=== PATIENT | male | born 1945 | race Caucasian/White ===

== ENCOUNTER 2017-03-29 15:40 | Emergency (ER) | payer MEDICARE, BC ==
[2017-03-29 16:09] VITALS: BP 190/87
[2017-03-29] MEDS ORDERED: Sodium Chloride 0.9% 10 ML Syringe FLUSH PRN (16:42)
[2017-03-29] MEDS ORDERED: HYDROmorphone 1 MG/ML Syringe IVPUSH ONE (16:42)
[2017-03-29] MEDS ORDERED: Oxybutynin 5 MG Tab PO ONE (16:45)
[2017-03-29] MEDS ORDERED: Ondansetron 4 MG/2 ML SDV IVPUSH ONE (16:47)
--- NOTE | 2017-03-29 17:04 | EDM.PDOC ---
ED HPI GENERAL MEDICAL PROBLEM - General Chief Complaint: General Stated Complaint: PAIN CONTROL Time Seen by Provider: 03/29/17 16:29 Source of Information: Reports: Patient History Limitations: Reports: No Limitations - History of Present Illness INITIAL COMMENTS - FREE TEXT/NARRATIVE: Patient is a 71-year-old male presents ED complaining of pelvic/suprapubic abdominal pain for the past 48 hours. States he has a history of prostate cancer for almost 4 years. 3 years ago had seed implantation to his prostate which on follow-up visits indicated his PSA was increasing. He was placed on Lupron to decrease any testosterone within his body. Dr. Wesley Urologists and Dr. King Oncologist discontinued the Lupron and placed the patient on Zytega... He's been on this medication for 6 months with no changes to his PSA. This was recently discontinued and was placed on another medication of unknown name. 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 Of note CT scans obtained in January did reveal lymph nodes had doubled in size around the aorta and inguinal region. States as of one week ago he went off this new medication because he has been experiencing muscle cramping and low energy. States this past Saturday went back on the new medication per pharmacy recommendations and states his stomach feels tight and has had incontinence to urine. He's had this incontinence of urine in the past that relieved on its own. Unclear if this stress incontinence or overflow. Denies any fever/chills, nausea/vomiting, numbness or tingling, saddle anesthesia, incontinence of stool, or any additional complaints. He thought he was bloated/constipated and took laxatives for the past 2 days. He's had multiple loose stools since starting. Today was evaluated at the [facility] and CT the abdomen, UA, and blood work were obtained. Bilateral Lower Abdomen Pain Score (Numeric/FACES): 8 - Related Data Allergies Allergy/AdvReac Type Severity Reaction Status Date / Time No Known Allergies Allergy Verified 03/29/17 16:09 Home Meds: Home Meds Allopurinol [Zyloprim] 100 mg PO DAILY 10/18/14 [History] amLODIPine [Norvasc] 5 mg PO DAILY 10/18/14 [History] Acetaminophen/HYDROcodone [Blue 325-5 MG] 1 tab PO Q6H PRN #20 tablet 03/29/17 [Rx] Hydrochlorothiazide 25 mg PO DAILY 03/29/17 [History] Losartan Potassium 50 mg PO DAILY 03/29/17 [History] atorvaSTATin [Lipitor] 10 mg PO DAILY 03/29/17 [History] predniSONE [Prednisone] 5 mg PO BID 03/29/17 [History] Past Medical History Cardiovascular History: Reports: High Cholesterol, Hypertension Respiratory History: Reports: Other (See Below) Other Respiratory History: sarcdolsysis Gastrointestinal History: Reports: GERD Genitourinary History: Reports: Other (See Below) Other Genitourinary History: prostate cancer Psychiatric History: Reports: Panic Attack Oncologic (Cancer) History: Reports: Prostate, Other (See Below) Other Oncologic History: prostate seeds implanted 2013 - Past Surgical History Respiratory Surgical History: Reports: Lung Biopsies GI Surgical History: Reports: Cholecystectomy Male Surgical History: Reports: Prostate Biopsy Musculoskeletal Surgical History: Reports: Other (See Below) Other Musculoskeletal Surgeries/Procedures:: ACL repair Social & Family History - Tobacco Use Smoking Status *Q: Never Smoker Second Hand Smoke Exposure: Yes - Caffeine Use Caffeine Use: Reports: Coffee - Alcohol Use Days Per Week of Alcohol Use: 0 - Recreational Drug Use Recreational Drug Use: No ED ROS GENERAL - Review of Systems Review Of Systems: ROS reveals no pertinent complaints other than HPI. Constitutional: Reports: Malaise, Fatigue. Denies: Fever, Chills, Weakness, Decreased Appetite HEENT: Reports: No Symptoms Respiratory: Reports: No Symptoms Cardiovascular: Reports: No Symptoms GI/Abdominal: Reports: Abdominal Pain (Suprapubic), Constipation, Diarrhea, Decreased Appetite, Distension. Denies: Black Stool, Bloody Stool, Flatus, Hematemesis, Melena, Nausea, Vomiting : Reports: Dysuria, Frequency, Incontinence, Pain, Urgency, Urinary Retention. Denies: Discharge, Hematuria Musculoskeletal: Reports: Back Pain (Low back bilaterally) Neurological: Denies: Numbness, Pre-Existing Deficit, Tingling, Difficulty Walking, Weakness ED EXAM, GENERAL - Physical Exam Exam: See Below Exam Limited By: No Limitations General Appearance: Alert, WD/WN, Mild Distress Ears: Hearing Grossly Normal Nose: Normal Inspection Throat/Mouth: Normal Voice, No Airway Compromise Neck: Normal Inspection, Supple Respiratory/Chest: No Respiratory Distress, Lungs Clear, Normal Breath Sounds, No Accessory Muscle Use, Chest Non-Tender Cardiovascular: Normal Peripheral Pulses, Regular Rate, Rhythm, No Murmur Peripheral Pulses: 2+: Radial (L) GI/Abdominal: Distended (Mildly distended), Tender (suprapubic region), Abnormal Bowel Sounds (Hyperactive) Extremities: Normal Range of Motion, Non-Tender, Normal Capillary Refill, Pedal Edema (1+ lower extremities) Course - Vital Signs Last Recorded V/S: Last Vital Signs Temp 97.1 F 03/29/17 16:05 Pulse 40 L 03/29/17 16:05 Resp 18 03/29/17 16:05 BP 190/87 H 03/29/17 16:05 Pulse Ox 98 03/29/17 16:05 - Orders/Labs/Meds Labs: Laboratory Tests 03/29/17 Range/Units 17:45 Magnesium 1.8 (1.8-2.4) mg/dl Troponin I < 0.017 (0.00-0.056) ng/mL Meds: Medications Discontinued Medications Generic Name Dose Route Start Last Admin Trade Name Freq PRN Reason Stop Dose Admin Hydromorphone HCl 1 mg 03/29/17 16:42 03/29/17 17:02 Dilaudid IVPUSH 03/29/17 16:43 1 mg ONETIME ONE Administration Ondansetron HCl 4 mg 03/29/17 16:47 03/29/17 16:58 Zofran IVPUSH 03/29/17 16:48 4 mg ONETIME ONE Administration Oxybutynin Chloride 5 mg 03/29/17 16:45 Oxybutynin PO 03/29/17 16:46 ONETIME ONE Sodium Chloride 10 ml 03/29/17 16:42 03/29/17 16:57 Saline Flush FLUSH 10 ml ASDIRECTED PRN Administration Keep Vein Open Tolterodine Tartrate 2 mg 03/29/17 17:52 03/29/17 18:54 Detrol PO 03/29/17 17:53 2 mg ONETIME ONE Administration - Re-Assessments/Exams Free Text/Narrative Re-Assessment/Exam: Order peripheral IV with hydrogen more phone 1 mg IVP, oxybutynin 5 mg by mouth 1 time for bladder spasms, and Zofran 4 mg IVP. Recent labs obtained today while in the clinic include CBC, chemistry, and UA. CBC revealed white blood cell count is 7.93, hemoglobin is 14.4, platelets 382, ESR of 37. Chemistry panel revealed sodium 139, potassium 3.6, creatinine 1.3, glucose 127. UA revealed 1+ protein, 2+ occult blood, rbc's 5-10. CT of the abdomen and pelvis with contrast dated March 29, 2017 impression: Prominent bowel wall thickening within the bladder particularly posteriorly. As mentioned above, differential includes local extension of prostate carcinoma, cystitis, and bowel wall thickening from radiation, transitional cell carcinoma. Cystoscopy with biopsy would be needed to differentiate. Bulky adenopathy within the upper retroperitoneum. This could represent lymphoma, metastatic lymph nodes from prostate carcinoma as well as mesenteric metastatic lymph nodes from transitional cell carcinoma if this is found within the bladder. Inflammatory change within the pelvis around the iliopsoas muscles. This is symmetric and is an interval change from prior exam what is likely incidental and due to previous radiation change. Other incidental changes as described above. 170 I did call [facility] one call to speak with the urologist on-call. They will call me back when available. 03/29/17 17:26 Patient's pulse did reveal some irregularities. EKG was obtained showing a sinus rhythm at a rate of 77 with bigeminal PVCs with occasional couplets. These are perfusing. Will obtain a magnesium and also troponin. Discussed with Dr. Hanna aviation mechanic hospitalist. She's not to concern at this point says if his magnesium is low treat. If not multiple patients walk around these days with similar findings. Patient is asymptomatic. 03/29/17 17:[address] Olsen aviation mechanic oncologist. Patient does not have an infection within his urine or showing signs of urinary retention. Unclear why the patient's having pain to the suprapubic region and having incontinence to urine. These are the 2 main concerns at this point to be ruled out while in the ED. Patient is scheduled to see Dr. Romero oncologist in 1.5 weeks. Can try Detrol for bladder spasms. This maybe in the differential. I ordered 2 mg by mouth. 03/29/17 18:00 Reassessment, pain is well controlled. 03/29/17 19:13 Magnesium and troponin within normal limits. Discharged home with instructions as documented. Departure - Departure Time of Disposition: 19:45 Disposition: Home, Self-Care 01 Condition: Good Clinical Impression: Prostate cancer, PVCs (premature ventricular contractions) Abdominal pain Qualifiers: Abdominal location: lower abdomen, unspecified Qualified Code(s): R10.30 - Lower abdominal pain, unspecified Urinary incontinence Qualifiers: Urinary Incontinence type: unspecified incontinence Qualified Code(s): R32 - Unspecified urinary incontinence - Discharge Information Prescriptions: Acetaminophen/HYDROcodone [Blue 325-5 MG] 1 tab PO Q6H PRN #20 tablet PRN Reason: Pain (Severe 7-10) Instructions: Urinary Incontinence, Abdominal Pain, Adult, [id number], Prostate Cancer Referrals: Stephania Anna NP [Primary Care Provider] - Beto King MD [Ordering Only Provider] - Forms: ED Department Discharge Additional Instructions: For pain take the Blue one tab every 4-6 hours when necessary for severe pain. Refrain from driving this evening nor while taking the Blue. Call Dr. Rey' s office on Saturday to schedule an earlier appointment. Follow-up your PCP as needed. Unclear etiology of incontinence and abdominal pain. You're UA did not reveal urinary tract infection and bladder scan did not reveal urinary retention. Continue to push the fluids. Return back to ED for any new or worsening symptoms.
[2017-03-29] MEDS ORDERED: Tolterodine 2 MG Tab PO ONE (17:52)
== END 2017-03-29 19:45 | disposition home or self-care (01) ==
LOC: JD.ED 15:40
DX: I49.3 Ventricular premature depolarization (principal); R10.32 Left lower quadrant pain; C61 Malignant neoplasm of prostate; R32 Unspecified urinary incontinence; I10 Essential (primary) hypertension; E78.00 Pure hypercholesterolemia, unspecified; K21.9 Gastro-esophageal reflux disease without esophagitis; F41.0 Panic disorder [episodic paroxysmal anxiety]; Z90.49 Acquired absence of other specified parts of digestive tract; Z79.899 Other long term (current) drug therapy; Z98.890 Other specified postprocedural states; R30.0 Dysuria; N30.90 Cystitis, unspecified without hematuria; R59.0 Localized enlarged lymph nodes; Z87.19 Personal history of other diseases of the digestive system
CPT/HCPCS: 36415; 51798; 74177; 80053; 81001; 83735; 84484; 85025; 96374; 96375; 99284; A9270; J1170; J2405; J7030; J7050; Q9967; 99213